=== PATIENT | female | born 1990 | race Caucasian/White ===

== ENCOUNTER 2020-01-03 05:20 | Inpatient (IN) | payer BC ==
[~2020-01-03] VITALS: Ht 160 cm; Wt 89.4 kg
[2020-01-03] MEDS ORDERED: LR 1,000 ML IV SCH (05:28)
[2020-01-03] MEDS ORDERED: CEFAZOLIN 2 GM IVPB PREMIX 50 ML IV ONE (05:30)
[2020-01-03 05:37] VITALS: BP_SYST 118
[2020-01-03 06:31] LABS: BASOPHILS # (AUTO) 0.1 K/uL (0.0-0.2); BASOPHILS % (AUTO) 0.9 % (0.0-2.0); EOSINOPHILS # (AUTO) 0.1 K/uL (0.0-0.4); HEMATOCRIT 33.7 % (36-48); HEMOGLOBIN 11.2 g/dL (12.0-16.0); LYMPHOCYTES # (AUTO) 2.1 K/uL (1.0-5.5); LYMPHOCYTES % (AUTO) 29.7 % (20.5-51.5); MEAN CORPUSCULAR HEMOGLOBIN 30 pg (27-31); MEAN CORPUSCULAR HGB CONC 33 % (32-36); MEAN CORPUSCULAR VOLUME 90 fL (79.0-98.0); MONOCYTES # (AUTO) 0.4 K/uL (0.0-1.0); MONOCYTES % (AUTO) 5.7 % (1.7-9.3); NEUTROPHILS # (AUTO) 4.3 K/uL (1.8-7.7); NEUTROPHILS % (AUTO) 61.7 % (40.0-70.0); PLATELET COUNT (AUTO) 290 K/uL (130-430); RED BLOOD CELL COUNT(AUTO) 3.76 MIL/uL (4.2-6.2); RED CELL DISTRIBUTION WIDTH 13.9 % (9.0-15.0)
[2020-01-03 07:15] LABS: BILIRUBIN,URINE NEGATIVE (NEGATIVE); BLOOD, URINE NEGATIVE (NEGATIVE); CLARITY/URINE SL CLOUDY (CLEAR); COLOR,URINE YELLOW (YELLOW); GLUCOSE,URINE NEGATIVE (NEGATIVE); KETONES,URINE NEGATIVE (NEGATIVE); LEUKOCYTE ESTERASE ,URINE TRACE (NEGATIVE); NITRITE, URINE NEGATIVE (NEGATIVE); PROTEIN URINE 2+ (NEGATIVE); UROBILINOGEN,URINE 0.2 (0.2-1.0)
[2020-01-03 07:19] LABS: BACTERIA,URINE MODERATE /HPF (None Seen); RBC,URINE 0-3 /HPF (0-3)
[2020-01-03] MEDS ORDERED: OXYTOCIN/0.9 % SODIUM CHLORIDE 1,000 ML IV ONE (08:44)
[2020-01-03] MEDS ORDERED: OXYCODONE/ACETAMINOPHEN 5-325 TABLET PO PRN (08:45)
[2020-01-03] MEDS ORDERED: BISACODYL 10 MG/SUPPOSITORY RC PRN (08:45)
[2020-01-03] MEDS ORDERED: LANOLIN 7 GM OINT. TP PRN (08:45)
[2020-01-03] MEDS ORDERED: ANUSOL 1 EA SUPP.RECT (PREPARATION H) RC PRN (08:45)
[2020-01-03] MEDS ORDERED: fentaNYL CITRATE/PF 100 MCG/2 ML AMP ONE (09:08)
[2020-01-03] MEDS ORDERED: OXYTOCIN 10 UNIT/ML VIAL ONE (09:13)
[2020-01-03] MEDS ORDERED: ONDANSETRON HCL 4 MG/2 ML VIAL IVP PRN (09:15)
[2020-01-03] MEDS ORDERED: HYDROmorphone 1 MG INJ. 1 MG/ML AMPUL IVP PRN (09:15)
[2020-01-03] MEDS ORDERED: fentaNYL CITRATE/PF 100 MCG/2 ML AMP IVP PRN ×2 (09:15)
[2020-01-03] MEDS ORDERED: fentaNYL CITRATE/PF 100 MCG/2 ML AMP IVP ONE (09:30)
[2020-01-03 10:01] VITALS: BP_SYST 145
[2020-01-03] MEDS ORDERED: KETOROLAC TROMETHAMINE 60 MG/2 ML VIAL IM ONE (10:30)
[2020-01-03] MEDS ORDERED: DIPHENHYDRAMINE INJ 50 MG/ML VIAL ONE (10:45)
[2020-01-03] MEDS ORDERED: DIPHENHYDRAMINE INJ 50 MG/ML VIAL IVP ONE (10:45)
[2020-01-03] MEDS: KETOROLAC TROMETHAMINE 30 MG VIAL IVP SCH ×2 (17:47→23:28)
[2020-01-03] MEDS ORDERED: TEMAZEPAM 15 MG CAPSULE PO PRN (21:00)
[2020-01-03] MEDS ORDERED: MEPERIDINE HCL/PF 50 MG/ML AMP IM PRN (22:30)
[2020-01-04] MEDS: KETOROLAC TROMETHAMINE 30 MG VIAL IVP SCH ×2 (05:34→12:15)
[2020-01-04 08:10] LABS: BASOPHILS % (AUTO) 0.2 % (0.0-2.0); EOSINOPHILS # (AUTO) 0.1 K/uL (0.0-0.4); EOSINOPHILS % (AUTO) 0.8 % (0.0-4.0); HEMATOCRIT 25.6 % (36-48); HEMOGLOBIN 8.5 g/dL (12.0-16.0); LYMPHOCYTES # (AUTO) 2.1 K/uL (1.0-5.5); LYMPHOCYTES % (AUTO) 24.2 % (20.5-51.5); MEAN CORPUSCULAR HEMOGLOBIN 30 pg (27-31); MEAN CORPUSCULAR HGB CONC 33 % (32-36); MEAN CORPUSCULAR VOLUME 90 fL (79.0-98.0); MONOCYTES # (AUTO) 0.6 K/uL (0.0-1.0); MONOCYTES % (AUTO) 6.9 % (1.7-9.3); NEUTROPHILS # (AUTO) 5.8 K/uL (1.8-7.7); NEUTROPHILS % (AUTO) 67.9 % (40.0-70.0); PLATELET COUNT (AUTO) 226 K/uL (130-430); RED BLOOD CELL COUNT(AUTO) 2.83 MIL/uL (4.2-6.2); RED CELL DISTRIBUTION WIDTH 14.1 % (9.0-15.0); WHITE BLOOD COUNT (AUTO) 8.5 K/uL (4.8-10.8)
[2020-01-04] MEDS: SIMETHICONE 80 MG TAB.CHEW PO PRN ×4 (08:14→21:24)
[2020-01-04] MEDS: DOCUSATE SODIUM 100 MG CAPSULE PO PRN ×2 (17:59→21:24)
[2020-01-04] MEDS: IBUPROFEN 800 MG TABLET PO PRN (17:59)
[2020-01-04] MEDS: OXYCODONE/ACETAMINOPHEN 5-325 TABLET PO PRN (21:25)
[2020-01-05] MEDS: IBUPROFEN 800 MG TABLET PO PRN ×5 (06:05→23:27)
[2020-01-05] MEDS: OXYCODONE/ACETAMINOPHEN 5-325 TABLET PO PRN (06:18)
[2020-01-05] MEDS: SIMETHICONE 80 MG TAB.CHEW PO PRN ×2 (12:35→20:19)
[2020-01-05] MEDS: DOCUSATE SODIUM 100 MG CAPSULE PO PRN (17:57)
[2020-01-06] MEDS: SIMETHICONE 80 MG TAB.CHEW PO PRN ×2 (05:45→12:31)
[2020-01-06] MEDS: IBUPROFEN 800 MG TABLET PO PRN ×2 (05:45→12:31)
== END 2020-01-06 14:15 | disposition home or self-care (01) | DRG 785 ==
LOC: SPU 05:20
PROVIDERS: ADMIT Obstetrics & Gynecology; ATTEND Obstetrics & Gynecology
PROC: 0UT70ZZ Resection of Bilateral Fallopian Tubes, Open Approach (ICD-10-PCS; 2020-01-03)
PROC: 10D00Z1 Extraction of Products of Conception, Low, Open Approach (ICD-10-PCS; principal; 2020-01-03 07:30)
DX: O34.211 Maternal care for low transverse scar from previous cesarean delivery (principal); Z3A.40 40 weeks gestation of pregnancy; Z37.0 Single live birth; Z30.2 Encounter for sterilization
CPT/HCPCS: 36415; 81000-TC; 85025; 86592; 86886; 86900; 86901; 94760; J0690; J1200; J1885; J2590; J3010; J7120